=== PATIENT | male | born 1970 | race Two or more races ===

== ENCOUNTER 2017-03-21 17:08 | Inpatient (IN) | payer MEDICAID ==
[~2017-03-21] VITALS: Ht 177.8 cm; Wt 90.7 kg
[2017-03-21 17:46] LABS: Basophils # (auto) 0 uL; Basophils % (auto) 0.4 % (0.0-2.0); Eosinophils # (auto) 0.2 uL; Eosinophils % (auto) 3.6 % (0.0-7.0); Hematocrit 45.3 % (41.0-53.0); Hemoglobin 15.5 g/dL (13.5-17.5); Lymphocytes % (auto) 33.6 % (10.0-50.0); Mean Corpuscular Hgb Conc. 34.2 g/dL (32.0-36.0); Mean Corpuscular Volume 90.7 fL (80.0-100.0); Mean Platelet Volume 8.2 fL (7.4-10.4); Monocytes # (auto) 0.5 uL; Monocytes % (auto) 8.4 % (0.0-12.0); Neutrophils # (auto) 3.2 uL; Platelet Count (auto) 248 10^3/uL (140-450); Red Cell Distribution Width 13.4 % (11.6-16.0)
[2017-03-21 17:49] LABS: Urine Bilirubin Negative (Negative); Urine Blood 2+ /uL (Negative); Urine Color Yellow (Yellow); Urine Glucose Normal (Normal); Urine Ketone Negative (Negative); Urine Mucus FEW (None Seen); Urine Nitrite Negative (Negative); Urine RBC 25 /hpf (0 - 3); Urine Squamous Epithelial Cell FEW /hpf (<5); Urine Urobilinogen Normal (Negative)
[2017-03-21 17:59] LABS: Albumin 4.5 g/dL (3.4-5.0); Anion Gap 9 (5-15); Aspartate Aminotransferase 19 U/L (15-37); BUN/Creatinine Ratio 14.4; Blood Urea Nitrogen 13 mg/dL (7-18); Calcium 8.9 mg/dL (8.5-10.1); Carbon Dioxide 26 mmol/L (21-32); Chloride 105 mmol/L (98-107); GFR African American 116 mL/min; GFR Non-African American 96 mL/min; Glucose 102 mg/dL (74-106); Magnesium 2.2 mg/dL (1.6-2.6); Potassium 3.4 mmol/L (3.5-5.1); Sodium 140 mmol/L (136-145)
[2017-03-21] MEDS ORDERED: ASPirin 81 mg TAB PO ONE (18:00)
[2017-03-21] MEDS ORDERED: MORPHINE SULFATE 4 MG/ML SYRG IV ONE (18:00)
[2017-03-21] MEDS ORDERED: ONDANSETRON HCL 4 MG/2 ML VIAL IV ONE (18:00)
[2017-03-21 18:01] LABS: INR 1.01 (0.9-1.15); Partial Thromboplastin Time 26.2 sec (22.64-33.71); Prothrombin Time 10.9 sec (9.37-12.3)
[2017-03-21 18:04] LABS: Alkaline Phosphatase 65 U/L (45-117); Bilirubin, Total 1.1 mg/dL (0.2-1.0); Total Protein 7.6 g/dL (6.4-8.2)
[2017-03-21] MEDS ORDERED: POTASSIUM CHL 10% (20 MEQ/15ML) ORAL SOLN PO ONE (20:00)
[2017-03-21] MEDS ORDERED: MORPHINE SULF INJ 2 MG/ML SYRINGE 1ML IV PRN (22:15)
[2017-03-21] MEDS ORDERED: NITROGLYCERIN 0.4 MG SL TAB SL PRN (22:15)
[2017-03-21] MEDS ORDERED: traZODone HCL 50 MG TAB PO SCH (23:00)
[2017-03-22 00:17] VITALS: BP 124/79
[2017-03-22] MEDS ORDERED: TRAZ50TA2 PO (00:44)
[2017-03-22] MEDS ORDERED: LOR05T PO (00:44)
[2017-03-22] MEDS ORDERED: LISI10TA6 PO (00:44)
[2017-03-22 03:21] LABS: Basophils # (auto) 0 uL; Basophils % (auto) 0.3 % (0.0-2.0); Eosinophils # (auto) 0.3 uL; Eosinophils % (auto) 5.1 % (0.0-7.0); Hematocrit 41.7 % (41.0-53.0); Hemoglobin 14.1 g/dL (13.5-17.5); Lymphocytes % (auto) 32.8 % (10.0-50.0); Mean Corpuscular Hemoglobin 31.2 pg (28.0-32.0); Mean Corpuscular Hgb Conc. 33.8 g/dL (32.0-36.0); Mean Corpuscular Volume 92.4 fL (80.0-100.0); Mean Platelet Volume 8.4 fL (7.4-10.4); Monocytes # (auto) 0.6 uL; Monocytes % (auto) 9.6 % (0.0-12.0); Neutrophils # (auto) 3.3 uL; Neutrophils % (auto) 52.2 % (37.0-80.0); Platelet Count (auto) 220 10^3/uL (140-450); Red Cell Distribution Width 13.5 % (11.6-16.0); White Blood Cell 6.2 10^3/uL (4.4-10.8)
[2017-03-22 03:29] LABS: BUN/Creatinine Ratio 18.3; Calcium 8.5 mg/dL (8.5-10.1); Potassium 3.9 mmol/L (3.5-5.1)
[2017-03-22 04:42] VITALS: BP 115/78
[2017-03-22] MEDS: SODIUM CHLOR 0.9% PF (SALINE LOCK) 10ML VIAL IV SCH ×2 (05:37→12:39)
[2017-03-22 08:20] VITALS: BP 112/77
[2017-03-22] MEDS ORDERED: ASPirin-EC 325mg tab PO SCH (10:00)
[2017-03-22] MEDS ORDERED: LISINOPRIL 10 MG TAB PO SCH (10:00)
[2017-03-22 11:25] VITALS: BP 114/74
== END 2017-03-22 13:10 | disposition home or self-care (01) | DRG 203 ==
LOC: ER 17:16 → TELE 17:17 → TELE-CENTR 23:57
PROVIDERS: ADMIT Emergency Medicine; ATTEND Emergency Medicine
DX: R07.89 Other chest pain (principal); I15.9 Secondary hypertension, unspecified; I10 Essential (primary) hypertension; F12.10 Cannabis abuse, uncomplicated; F32.9 Major depressive disorder, single episode, unspecified; F15.10 Other stimulant abuse, uncomplicated; F17.210 Nicotine dependence, cigarettes, uncomplicated; F41.9 Anxiety disorder, unspecified; Z71.51 Drug abuse counseling and surveillance of drug abuser; Z71.6 Tobacco abuse counseling
CPT/HCPCS: 36415; 71010; 80048; 80053; 80307; 80320; 81001; 83735; 84484; 85025; 85610; 85730; 93005; 96374; 96375; J2405

== ENCOUNTER 2017-03-23 10:42 | Emergency (ER) | payer MEDICAID ==
[~2017-03-23] VITALS: Ht 177.8 cm; Wt 90.7 kg
[~2017-03-23 10:42] MED LIST: LISI10TA6 PO; LOR05T PO; TRAZ50TA2 PO
[2017-03-23 10:52] VITALS: BP 145/99
== END 2017-03-23 11:20 | disposition home or self-care (01) ==
LOC: ER 10:42
DX: K02.9 Dental caries, unspecified (principal); F17.210 Nicotine dependence, cigarettes, uncomplicated; F12.10 Cannabis abuse, uncomplicated; F15.10 Other stimulant abuse, uncomplicated; I10 Essential (primary) hypertension; Z79.899 Other long term (current) drug therapy